=== PATIENT | female | born 1940 | race Caucasian/White ===

== ENCOUNTER → 2017-10-18 | Outpatient (CLI) | payer MEDICARE, OTHER | LOC: COL.RAD 14:54 | DX: K57.32 Diverticulitis of large intestine without perforation or abscess without bleeding (principal); K66.8 Other specified disorders of peritoneum; M47.816 Spondylosis without myelopathy or radiculopathy, lumbar region; M48.56XA Collapsed vertebra, not elsewhere classified, lumbar region, initial encounter for fracture | CPT/HCPCS: Q9967 ==

== ENCOUNTER → 2018-01-17 | Outpatient (CLI) | payer MEDICARE, OTHER | LOC: MC.RAD 16:37 | DX: Z12.31 Encounter for screening mammogram for malignant neoplasm of breast (principal) ==